=== PATIENT | female | born 1970 | race Caucasian/White ===

== ENCOUNTER 2017-03-08 09:57 | Emergency (ER) | payer OTHER ==
[~2017-03-08] VITALS: Ht 162.6 cm; Wt 115.0 kg
[~2017-03-08 09:57] MED LIST: LEVO.1 PO; MACR100C PO; NAPR500 PO; PREV30CA36 PO
[2017-03-08 09:59] VITALS: BP 240/110; PULSE 71; RESP 16; TEMP 98.4; O2SAT 98
[2017-03-08 10:00] VITALS: BP 208/100
[2017-03-08 10:30] VITALS: BP 194/99; PULSE 63; RESP 15; O2SAT 99
[2017-03-08] MEDS ORDERED: diphenhydrAMINE HCL 50 MG/ML VIAL IVP ONE (10:45)
[2017-03-08] MEDS ORDERED: KETOROLAC TROMETHAMINE 30 MG/ML (IVP) VIAL IVP ONE (10:45)
[2017-03-08] MEDS ORDERED: PROCHLORPERAZINE INJ 10 MG/2 ML VIAL IVP ONE (10:45)
[2017-03-08] MEDS ORDERED: SODIUM CHLOR 0.9% 1000 ML INJ 1,000 ML IV ONE (10:45)
[2017-03-08] MEDS ORDERED: ZANT150T2 PO (11:22)
[2017-03-08] MEDS ORDERED: TEGR200T PO (11:22)
[2017-03-08] MEDS ORDERED: PROT40TA PO (11:22)
[2017-03-08] MEDS ORDERED: LEVO.1 PO (11:22)
[2017-03-08] MEDS ORDERED: SERO200T PO (11:22)
[2017-03-08] MEDS ORDERED: TOPI25 PO (11:22)
[2017-03-08] MEDS ORDERED: OXYB5TAB8 PO (11:23)
[2017-03-08 11:24] LABS: AUTOMATED NEUTROPHIL # 4.3 TH/MM3 (1.8-7.7); BASOPHIL # 0.1 TH/MM3 (0-0.2); BASOPHIL % 0.8 % (0.0-2.0); EOSINOPHIL # 0.1 TH/MM3 (0-0.4); EOSINOPHIL % 1.7 % (0.0-4.0); HEMATOCRIT 42.2 % (35.0-46.0); HEMO FLAGS DIFF FINAL; LYMPH % 22.3 % (9.0-44.0); LYMPHOCYTE # 1.4 TH/MM3 (1.0-4.8); MEAN CELL VOLUME 85.4 FL (80.0-100.0); MEAN CORPUSCULAR HEMOGLOBIN 29.2 PG (27.0-34.0); MEAN CORPUSCULAR HGB CONC 34.2 % (32.0-36.0); MONO % 7.1 % (0.0-8.0); NEUT % 68.1 % (16.0-70.0); PLATELET COUNT 220 TH/MM3 (150-450); RED BLOOD COUNT 4.94 MIL/MM3 (4.00-5.30); RED CELL DISTRIBUTION WIDTH 14.1 % (11.6-17.2); WHITE BLOOD COUNT 6.3 TH/MM3 (4.0-11.0)
--- NOTE | 2017-03-08 11:29 | PD ---
HPI Chief Complaint: Hypertension Time Seen by Provider: 10:28 Travel History International Travel<30 days: No Contact w/Intl Traveler<30days: No Traveled to known affect area: No History of Present Illness HPI 46-year-old female presents with frontal headache that feels like a migraine. She states she has not taken anything for the headache today. She states she just completed 5 days of detox for a herbal medication kratom. She states that she has not had any trauma. She denies any other concurrent complaints. Quality is throbbing. Severity is moderate. She states that she used to be an opioid abuse or so she wants to stay away from addictive medications. She states the headache is worse with lights and movement. She denies other modifying factors. PFSH Past Medical History Arthritis: Yes (RHEUMATOID) Anxiety: Yes Depression: Yes Cardiac Catheterization: No Cardiovascular Problems: Yes High Cholesterol: No Congestive Heart Failure: No Diabetes: No Diminished Hearing: No Genitourinary: No Hypertension: Yes (QUESTIONABLE MED COMPLIANCE) Musculoskeletal: Yes (RA) Neurologic: No Psychiatric: Yes (suicidal) Reproductive: No Respiratory: No Immunizations Current: No Myocardial Infarction: No Thyroid Disease: Yes (hypothyroid) Tetanus Vaccination: > 5 Years Influenza Vaccination: No ?: Not Menopausal: Yes : 4 Para: 3 Miscarriage: 1 : 2 Past Surgical History Coronary Artery Bypass Graft: No Endocrine Surgery: Yes (left side thyroid removed) Hysterectomy: Yes (PARTIAL ) Other Surgery: Yes (THYROID) Social History Alcohol Use: No Tobacco Use: No (QUIT ) Substance Use: Yes (OPIATE USE, XANAX ABUSE) Allergies-Medications (Allergen,Severity, Reaction): Coded Allergies: No Known Allergies (Verified , 10/30/11) Reported Meds & Prescriptions Reported Meds & Active Scripts Active Naprosyn (Naproxen) 500 Mg Tab 500 Mg PO BIDPRN Reported Ditropan (Oxybutynin Chloride) 5 Mg Tab 5 Mg PO HS Topamax (Topiramate) 25 Mg Tab 25 Mg PO DAILY Tegretol (Carbamazepine) 200 Mg Tab 200 Mg PO QID Seroquel (Quetiapine Fumarate) 200 Mg Tab 200 Mg PO HS Zantac (Ranitidine HCl) 150 Mg Tab 150 Mg PO BID Protonix (Pantoprazole Sodium) 40 Mg Tab 40 Mg PO DAILY Synthroid (Levothyroxine Sodium) 100 Mcg Tab 100 Mcg PO DAILY Review of Systems Except as stated in HPI: all other systems reviewed are Neg Physical Exam Narrative GENERAL: Well-nourished, well-developed patient. SKIN: Warm and dry. HEAD: Normocephalic and atraumatic. EYES: No injection or drainage. ENT: No nasal drainage noted. NECK: Supple, trachea midline. CARDIOVASCULAR: Regular rate and rhythm RESPIRATORY: Breath sounds equal bilaterally. No accessory muscle use. GASTROINTESTINAL: Abdomen soft, non-tender, nondistended. EXTREMITIES: No edema. NEUROLOGICAL: Awake and alert. Motor and sensory grossly within normal limits. Normal speech. Data Data Last Documented VS Vital Signs Date Time Temp Pulse Resp B/P (MAP) Pulse Ox O2 Delivery O2 Flow Rate FiO2 03/08/17 12:21 62 18 163/95 (117) 99 Room Air 03/08/17 09:59 98.4 Orders Orders Complete Blood Count With Diff (03/08/17 10:28) Basic Metabolic Panel (Bmp) (03/08/17 10:28) Act Partial Throm Time (Ptt) (03/08/17 10:28) Prothrombin Time / Inr (Pt) (03/08/17 10:28) Ct Brain W/O Iv Contrast(Rout) (03/08/17 ) Iv Access Insert/Monitor (03/08/17 10:28) Ecg Monitoring (03/08/17 10:28) Oximetry (03/08/17 10:28) Ketorolac Inj (Toradol Inj) (03/08/17 10:45) Prochlorperazine Inj (Compazine Inj) (03/08/17 10:45) Diphenhydramine Inj (Benadryl Inj) (03/08/17 10:45) Sodium Chlor 0.9% 1000 Ml Inj (Ns 1000 M (03/08/17 10:45) Vital Signs (03/08/17 12:12) Ed Discharge Order (03/08/17 12:25) Labs Laboratory Tests Test 03/08/17 10:35 White Blood Count 6.3 TH/MM3 Red Blood Count 4.94 MIL/MM3 Hemoglobin 14.4 GM/DL Hematocrit 42.2 % Mean Corpuscular Volume 85.4 FL Mean Corpuscular Hemoglobin 29.2 PG Mean Corpuscular Hemoglobin Concent 34.2 % Red Cell Distribution Width 14.1 % Platelet Count 220 TH/MM3 Mean Platelet Volume 8.2 FL Neutrophils (%) (Auto) 68.1 % Lymphocytes (%) (Auto) 22.3 % Monocytes (%) (Auto) 7.1 % Eosinophils (%) (Auto) 1.7 % Basophils (%) (Auto) 0.8 % Neutrophils # (Auto) 4.3 TH/MM3 Lymphocytes # (Auto) 1.4 TH/MM3 Monocytes # (Auto) 0.4 TH/MM3 Eosinophils # (Auto) 0.1 TH/MM3 Basophils # (Auto) 0.1 TH/MM3 CBC Comment DIFF FINAL Differential Comment Prothrombin Time 10.6 SEC Prothromb Time International Ratio 1.0 RATIO Activated Partial Thromboplast Time 28.5 SEC Blood Urea Nitrogen 9 MG/DL Creatinine 0.60 MG/DL Random Glucose 101 MG/DL Calcium Level 8.7 MG/DL Sodium Level 137 MEQ/L Potassium Level 3.9 MEQ/L Chloride Level 106 MEQ/L Carbon Dioxide Level 22.7 MEQ/L Anion Gap 8 MEQ/L Estimat Glomerular Filtration Rate 108 ML/MIN [facility] Medical Decision Making Medical Screen Exam Complete: Yes Emergency Medical Condition: Yes Medical Record Reviewed: Yes (pmh confirmed) Interpretation(s) CBC & BMP Diagram 03/08/17 10:35 Calcium Level 8.7 Differential Diagnosis Tension, migraine, intracranial, withdrawal Narrative Course Will check blood work, CT brain and dose with Compazine, Benadryl, Toradol, IV fluids and reevaluate ed workup no emergent, Patient denies any new complaints, all questions answered. Patient knows that follow up is incumbent on them and to return to the emergency room immediately if new or worsening symptoms develop. Patient given strict return precautions, vitals reviewed and are normal, agrees to further workup as an outpatient. father at bedside Diagnosis Primary Impression: Cephalalgia Qualified Codes: R51 - Headache Patient Instructions: General Instructions Additional Instructions: tylenol as needed, keep blood pressure log, return as needed, follow with primary-call for appointment this week Med/Other Pt SpecificInfo: No Change to Meds Disposition: 01 DISCHARGE HOME Condition: Stable Natalia Ortiz MD Mar 08, 2017 11:29
[2017-03-08 11:31] LABS: APTT (PATIENT) 28.5 SEC (24.3-30.1); PROTHROMBIN TIME - PATIENT 10.6 SEC (9.8-11.6)
--- NOTE | 2017-03-08 11:43 | RADRPT ---
EXAM DATE/TIME: 03/08/2017 11:18 [place] COMPARISON: No previous studies available for comparison. INDICATIONS : Cephalgia today. RADIATION DOSE: 56.35 CTDIvol (mGy) MEDICAL HISTORY : Hypertension. Withdraw SURGICAL HISTORY : Hysterectomy. ENCOUNTER: Initial ACUITY: 1 day PAIN SCALE: 7/10 LOCATION: Bilateral head TECHNIQUE: Multiple contiguous axial images were obtained of the head. Using automated exposure control and adj ustment of the mA and/or kV according to patient size, radiation dose was kept as low as reasonably a chievable to obtain optimal diagnostic quality images. DICOM format image data is available electro nically for review and comparison. FINDINGS: CEREBRUM: The ventricles are normal for age. No evidence of midline shift, mass lesion, hemorrhage or acute in farction. No extra-axial fluid collections are seen. POSTERIOR FOSSA: The cerebellum and brainstem are intact. The 4th ventricle is midline. The cerebellopontine angle i s unremarkable. EXTRACRANIAL: The visualized portion of the orbits is intact. SKULL: The calvaria is intact. No evidence of skull fracture. CONCLUSION: Negative noncontrast CT brain. Chepe Casillas MD on March 08, 2017 at 11:41 Board Certified Radiologist. This report was verified electronically.
[2017-03-08 11:58] LABS: BICARBONATE 22.7 MEQ/L (21.0-32.0); POTASSIUM 3.9 MEQ/L (3.5-5.1)
[2017-03-08 12:21] VITALS: BP 163/95; PULSE 62; RESP 18; O2SAT 99
[2017-03-08 13:15] VITALS: BP 174/95
== END 2017-03-08 13:15 | disposition home or self-care (01) ==
LOC: NEPE 09:57
DX: R51 Headache (principal); I10 Essential (primary) hypertension; M06.9 Rheumatoid arthritis, unspecified; E03.9 Hypothyroidism, unspecified
CPT/HCPCS: 70450; 80048; 85025; 85610; 85730; 96361; 96374; 96375; 99285; J0780; J1200; J1885; J7030